=== PATIENT | male | born 2000 | race Caucasian/White ===

== ENCOUNTER 2024-02-19 22:49 | Emergency (ER) | payer OTHER, MEDICAID ==
[~2024-02-19] VITALS: Ht 165.1 cm; Wt 67.1 kg
[2024-02-19 23:01] VITALS: BP 114/67; PULSE 54; RESP 18; TEMP 97.6; O2SAT 98
[2024-02-19] MEDS: IBUPROFEN 600 MG TAB PO ONE (23:46)
== END 2024-02-20 00:32 | disposition home or self-care (01) ==
LOC: MED 22:49
DX: S16.1XXA Strain of muscle, fascia and tendon at neck level, initial encounter (principal); V89.2XXA Person injured in unspecified motor-vehicle accident, traffic, initial encounter; Y93.89 Activity, other specified; Y92.89 Other specified places as the place of occurrence of the external cause; Y99.8 Other external cause status
CPT/HCPCS: 72050; 99283